=== PATIENT | female | born 1955 | race Caucasian/White ===

== ENCOUNTER → 2025-05-05 12:25 | Outpatient (REF) | payer OTHER, SELFPAY | LOC: EMG 12:25 | PROVIDERS: ATTENDING PHYSICIAN Physician Assistant Surgical; FAMILY PHYSICIAN Family Medicine | DX: M54.16 Radiculopathy, lumbar region (principal); R20.0 Anesthesia of skin | CPT/HCPCS: 95886; 95909 ==